=== PATIENT | female | born 1980 | race Caucasian/White ===

== ENCOUNTER 2016-03-24 18:57 | Emergency (ER) | payer OTHER ==
[~2016-03-24 18:57] MED LIST: IRON325 MG PO; PERCOCET1 TA1 PO; PROAIR HFA IN
--- NOTE | 2016-03-24 19:20 | DIAGNOSTIC IMAGING REPORT ---
PROCEDURE: XR ELBOW 3 OR 4 VIEWS - LEFT INDICATION: TRAUMA/INJURY TECHNIQUE: Four views. COMPARISON: None. FINDINGS: Osseous structures and joint spaces are normal. No evidence of an effusion. IMPRESSION: 1. Normal left elbow.
--- NOTE | 2016-03-24 19:38 | ED ORDER SUMMARY ---
..... Patient: OMAR MCMULLEN OrderSheet [facility] VisitID: [id number] [address] [place] [address] 35y, F Registration Date/Time: 03/24/2016 ORDER SHEET Weight: 122.0 kg (stated) Allergies: Iodine, Latex, Red Dye, Penicillins GENERAL ORDERS: Elbow 3 or 4V Left Urgent (19:07 03/24/2016 Reina P.A.-C) (19:15 Stephy Rivera) Calixto Wrap (19:37 03/24/2016 Reina P.A.-C) (19:41 Marisel WARD Tech1) MEDICATION ORDERS: IV FLUIDS: ORDER SHEET NOTES: [Electronically signed by Mamta Hernandez R.N. (19:51 03/24/2016)] [Electronically signed by Joan MartínezAChris-Hu (20:07 03/24/2016)] [Electronically locked/signed by Mamta Hernandez R.N. (19:51 03/24/2016)]
--- NOTE | 2016-03-24 19:38 | ED CLINICAL REPORT ---
Clinical Report - Physicians/Mid Levels [facility] [address] [place] [address] 03/24/2016 18:58 Patient: OMAR MCMULLEN Time Seen: 19:11 Mar 24 2016. Arrived- By private vehicle. Historian- patient. HISTORY OF PRESENT ILLNESS Chief Complaint: Injury to the left elbow. The injury happened just prior to arrival. The patient sustained a direct blow. Occurred at home. Patient is experiencing moderate pain. Patient denies injury to the head or neck. ( right-hand dominant individual, today for trial sample to the elbow. Reports was at home, playing around with her kids, she was with a soft/hard object to the left elbow. No medications or I try to arrival. Apparently to the area. Reports pain shooting to the wrist. Denies any other fall or any other injury to the head or neck.). REVIEW OF SYSTEMS No skin laceration. All systems otherwise negative, except as recorded above. PAST HISTORY The patient has had a prior injury to the same area. Problems: Cellulitis. Insect Bite(s). Adverse Drug Reaction. Dizziness. Fibromyalgia. Hepatitis. Ectopic . Dysfunctional Uterine Bleeding. Contusion. Sprain. Neuropathy. Vomiting. Immunizations. LNMP - Last Normal Menstrual Period. Pharyngitis. Bronchitis. Viral Disease. Back Pain. Asthma. Additional Surgeries: Cholecystectomy. Dilatation & Curettage. Tonsillectomy. Tubal Ligation. Medications: Mobic Oral. Albuterol Sulfate Inhalation, PRN. Singulair Oral, daily. Zoloft Oral. Allergies: Iodine. Latex. Penicillins. Red Dye. SOCIAL HISTORY Never smoker. Alcohol use. No drug use. PHYSICAL EXAM Vital Signs: 03/24/2016 19:01 BP: 103/78. HR: 110. RR: 18. O2 saturation: 99%. Temp: 97.7 F. Pain level now: 8/10. Head: Head atraumatic. ENT: Ears normal. Nose normal. Neck: Normal inspection. Neck supple. CVS: Normal heart rate and rhythm. Heart sounds normal. Respiratory: No respiratory distress. Breath sounds normal. No chest wall injury. Skin: Skin warm. Normal skin color. Extremities: Left elbow: mild tenderness and swelling. (distal tenderness). No ecchymosis or puncture wound. No joint effusion or limitation in ROM. Neuro, Vascular and Tendons: Vascular status intact. Tendon function intact. Neuro: Oriented X 3. LABS, X-RAYS, AND EKG Lt Elbow X-ray: (IMPRESSION: 1. Normal left elbow. Electronically Final signed by:Malick Waggoner MD 03/24/2016 7:17:05 PM). PROGRESS AND PROCEDURES PROCEDURES (yahir wrap left elbow, applied by [employer], ns intact). Course of Care: no signs of fx. Pt stable. fair rom. No other injury. Patient is stable. Patient/family counseled. Differential Diagnosis: I considered sprain, dislocation, effusion, hemarthrosis, ligament injury, tendon injury, meniscus tear, fracture, stress fracture, navicular fracture, bursitis and gout as a possible cause of joint pain in this patient. This is a partial list of diagnoses considered. Disposition: Discharged. CLINICAL IMPRESSION Contusion to the left elbow. INSTRUCTIONS Apply ice. OTC Medications: Motrin (available over the counter): take according to label instructions. Follow-up: Follow up with your doctor Tuesday if not well. (Electronically signed by Joan Martínez P.A.-C 03/24/2016 20:07)
--- NOTE | 2016-03-24 19:38 | ED NURSING NOTES ---
Clinical Report - Nurses [facility] [address] [place] [address] 03/24/2016 18:58 Patient: OMAR MCMULLEN TRIAGE Triage time 19:01. Acuity: LEVEL 3. Chief Complaint: INJURY TO THE LEFT FOREARM. Alert. No acute distress. CHARY COMA SCORE: Chary Coma Scale: 15- eyes open spontaneously (4); best verbal response- oriented x 4 (5); best motor response- obeys commands (6). --19:09 Sita Rader R.N. 19:01 03/24/16. BP: 103/78. HR: 110. RR: 18. O2 saturation: 99% on room air. Temp: 97.7 F (oral). Pain level now: 09/30. --19:09 Sita Rader R.N. Weight: 122 kg stated. Height/Length: 66 inches Per Patient. BMI: 43.4. --19:07 Sita Rader R.N. Medications Albuterol Sulfate Inhalation, PRN. Singulair Oral, daily. Zoloft Oral. --19:04 Sita Rader R.N. Mobic Oral. --19:04 Sita Rader R.N. Medication/allergy information source: the patient. --19:09 Sita Rader R.N. Allergies Iodine. Latex. Red Dye. --19:05 Sita Rader R.N. Penicillins. --19:05 Sita Rader R.N. History Arrived by private vehicle. Historian: patient. Accompanied by family and friend. Primary physician (Florencia). This occurred just prior to arrival and today. Occurred at home. Mechanism of injury: a blow (with heavy object). PAST MEDICAL HX: Last normal menstrual period- Feb 2016. SOCIAL HX: Smoker- current status unknown (no). Occasional alcohol use. No drug use. FALL RISK ASSESSMENT: Fall risk assessment completed. No fall risk identified. FUNCTIONAL ASSESSMENT: Functional assessment: no impairments noted. LEARNING NEEDS ASSESSMENT: The learning needs assessment revealed no barriers. --19:09 Sita Rader R.N. PROBLEMS: Cellulitis. Insect Bite(s). Adverse Drug Reaction. Dizziness. Fibromyalgia. Hepatitis. Ectopic . Dysfunctional Uterine Bleeding. Contusion. Sprain. Neuropathy. Vomiting. Immunizations. LNMP - Last Normal Menstrual Period. Pharyngitis. Bronchitis. Viral Disease. Back Pain. Asthma. --19:04 Sita Rader R.N. ADDITIONAL SURGERIES: Cholecystectomy. Dilatation & Curettage. Tonsillectomy. Tubal Ligation. --19:04 Sita Rader R.N. Assessment GENERAL / NEURO / PSYCH: The patient is awake and alert, is oriented and cooperative and appears uncomfortable. She has good eye contact. RESPIRATORY: Respirations not labored. SKIN: Skin is warm and dry. --19: Sita Rader R.N. Interventions ID and allergy band on patient. To treatment room. --19: Sita Rader R.N. NURSING PROGRESS NOTES 3 inch yahir bandage applied to left elbow by tech; distal pulses intact, sensation intact and motor function within normal limits. --19:40 Xiang Sanabria, ED Tech1. DISPOSITION / DISCHARGE Departure time: 1950 PM. Condition at departure: improved and stable. The goals identified in the patient's plan of care were met. No learning barriers present. Discharge instructions provided and reviewed with the patient. Reviewed medication(s) side effects, precautions, dosing and course information. Prescription(s) given to the patient. Treatments reviewed (ice and elevate). Activity restrictions (rest) reviewed. She has no activity restrictions. Patient verbalized understanding. Written instructions provided in Hungarian. No diet instructions. The patient was discharged by the physician geological survey field assistant. She was discharged home and accompanied by family. She left the Emergency Department ambulatory and via private vehicle. Patient driving. FALL RISK ASSESSMENT: Fall risk assessment completed. No fall risk identified. --19:50 Mamta Hernandez R.N. 19:45 03/24/16. BP: 108/58. HR: 78. RR: 16. O2 saturation: 100% on room air. Temp: 98.2 F (oral). Pain level now: 06/30. --19:50 Mamta Hernandez R.N. Locked/Released at 03/24/2016 19:51 by Mamta Hernandez R.N.
--- NOTE | 2016-03-24 19:38 | ED ORDER SUMMARY ---
..... Patient: OMAR MCMULLEN OrderSheet [facility] VisitID: [id number] [address] [place] [address] 35y, F Registration Date/Time: 03/24/2016 ORDER SHEET Weight: 122.0 kg (stated) Allergies: Iodine, Latex, Red Dye, Penicillins GENERAL ORDERS: Elbow 3 or 4V Left Urgent (19:07 03/24/2016 Reina P.A.-C) (19:15 Stephy Rivera) Calixto Wrap (19:37 03/24/2016 Reina P.A.-C) (19:41 Marisel WARD Tech1) MEDICATION ORDERS: IV FLUIDS: ORDER SHEET NOTES: [Electronically signed by Mamta Hernandez R.N. (19:51 03/24/2016)] [Electronically signed by Joan MartínezAChris-Hu (20:07 03/24/2016)] [Electronically locked/signed by Mamta Hernandez R.N. (19:51 03/24/2016)]
--- NOTE | 2016-03-24 19:38 | ED CLINICAL REPORT ---
Clinical Report - Physicians/Mid Levels [facility] [address] [place] [address] 03/24/2016 18:58 Patient: OMAR MCMULLEN Time Seen: 19:11 Mar 24 2016. Arrived- By private vehicle. Historian- patient. HISTORY OF PRESENT ILLNESS Chief Complaint: Injury to the left elbow. The injury happened just prior to arrival. The patient sustained a direct blow. Occurred at home. Patient is experiencing moderate pain. Patient denies injury to the head or neck. ( right-hand dominant individual, today for trial sample to the elbow. Reports was at home, playing around with her kids, she was with a soft/hard object to the left elbow. No medications or I try to arrival. Apparently to the area. Reports pain shooting to the wrist. Denies any other fall or any other injury to the head or neck.). REVIEW OF SYSTEMS No skin laceration. All systems otherwise negative, except as recorded above. PAST HISTORY The patient has had a prior injury to the same area. Problems: Cellulitis. Insect Bite(s). Adverse Drug Reaction. Dizziness. Fibromyalgia. Hepatitis. Ectopic . Dysfunctional Uterine Bleeding. Contusion. Sprain. Neuropathy. Vomiting. Immunizations. LNMP - Last Normal Menstrual Period. Pharyngitis. Bronchitis. Viral Disease. Back Pain. Asthma. Additional Surgeries: Cholecystectomy. Dilatation & Curettage. Tonsillectomy. Tubal Ligation. Medications: Mobic Oral. Albuterol Sulfate Inhalation, PRN. Singulair Oral, daily. Zoloft Oral. Allergies: Iodine. Latex. Penicillins. Red Dye. SOCIAL HISTORY Never smoker. Alcohol use. No drug use. PHYSICAL EXAM Vital Signs: 03/24/2016 19:01 BP: 103/78. HR: 110. RR: 18. O2 saturation: 99%. Temp: 97.7 F. Pain level now: 8/10. Head: Head atraumatic. ENT: Ears normal. Nose normal. Neck: Normal inspection. Neck supple. CVS: Normal heart rate and rhythm. Heart sounds normal. Respiratory: No respiratory distress. Breath sounds normal. No chest wall injury. Skin: Skin warm. Normal skin color. Extremities: Left elbow: mild tenderness and swelling. (distal tenderness). No ecchymosis or puncture wound. No joint effusion or limitation in ROM. Neuro, Vascular and Tendons: Vascular status intact. Tendon function intact. Neuro: Oriented X 3. LABS, X-RAYS, AND EKG Lt Elbow X-ray: (IMPRESSION: 1. Normal left elbow. Electronically Final signed by:Malick Waggoner MD 03/24/2016 7:17:05 PM). PROGRESS AND PROCEDURES PROCEDURES (yahir wrap left elbow, applied by [employer], ns intact). Course of Care: no signs of fx. Pt stable. fair rom. No other injury. Patient is stable. Patient/family counseled. Differential Diagnosis: I considered sprain, dislocation, effusion, hemarthrosis, ligament injury, tendon injury, meniscus tear, fracture, stress fracture, navicular fracture, bursitis and gout as a possible cause of joint pain in this patient. This is a partial list of diagnoses considered. Disposition: Discharged. CLINICAL IMPRESSION Contusion to the left elbow. INSTRUCTIONS Apply ice. OTC Medications: Motrin (available over the counter): take according to label instructions. Follow-up: Follow up with your doctor Tuesday if not well. (Electronically signed by Joan Martínez P.A.-C 03/24/2016 20:07)
--- NOTE | 2016-03-24 19:38 | ED NURSING NOTES ---
Clinical Report - Nurses [facility] [address] [place] [address] 03/24/2016 18:58 Patient: OMAR MCMULLEN TRIAGE Triage time 19:01. Acuity: LEVEL 3. Chief Complaint: INJURY TO THE LEFT FOREARM. Alert. No acute distress. CHARY COMA SCORE: Chary Coma Scale: 15- eyes open spontaneously (4); best verbal response- oriented x 4 (5); best motor response- obeys commands (6). --19:09 Sita Rader R.N. 19:01 03/24/16. BP: 103/78. HR: 110. RR: 18. O2 saturation: 99% on room air. Temp: 97.7 F (oral). Pain level now: 09/30. --19:09 Sita Rader R.N. Weight: 122 kg stated. Height/Length: 66 inches Per Patient. BMI: 43.4. --19:07 Sita Rader R.N. Medications Albuterol Sulfate Inhalation, PRN. Singulair Oral, daily. Zoloft Oral. --19:04 Sita Rader R.N. Mobic Oral. --19:04 Sita Rader R.N. Medication/allergy information source: the patient. --19:09 Sita Rader R.N. Allergies Iodine. Latex. Red Dye. --19:05 Sita Rader R.N. Penicillins. --19:05 Sita Rader R.N. History Arrived by private vehicle. Historian: patient. Accompanied by family and friend. Primary physician (Florencia). This occurred just prior to arrival and today. Occurred at home. Mechanism of injury: a blow (with heavy object). PAST MEDICAL HX: Last normal menstrual period- Feb 2016. SOCIAL HX: Smoker- current status unknown (no). Occasional alcohol use. No drug use. FALL RISK ASSESSMENT: Fall risk assessment completed. No fall risk identified. FUNCTIONAL ASSESSMENT: Functional assessment: no impairments noted. LEARNING NEEDS ASSESSMENT: The learning needs assessment revealed no barriers. --19:09 Sita Rader R.N. PROBLEMS: Cellulitis. Insect Bite(s). Adverse Drug Reaction. Dizziness. Fibromyalgia. Hepatitis. Ectopic . Dysfunctional Uterine Bleeding. Contusion. Sprain. Neuropathy. Vomiting. Immunizations. LNMP - Last Normal Menstrual Period. Pharyngitis. Bronchitis. Viral Disease. Back Pain. Asthma. --19:04 Sita Rader R.N. ADDITIONAL SURGERIES: Cholecystectomy. Dilatation & Curettage. Tonsillectomy. Tubal Ligation. --19:04 Sita Rader R.N. Assessment GENERAL / NEURO / PSYCH: The patient is awake and alert, is oriented and cooperative and appears uncomfortable. She has good eye contact. RESPIRATORY: Respirations not labored. SKIN: Skin is warm and dry. --19: Sita Rader R.N. Interventions ID and allergy band on patient. To treatment room. --19: Sita Rader R.N. NURSING PROGRESS NOTES 3 inch yahir bandage applied to left elbow by tech; distal pulses intact, sensation intact and motor function within normal limits. --19:40 Xiang Sanabria, ED Tech1. DISPOSITION / DISCHARGE Departure time: 1950 PM. Condition at departure: improved and stable. The goals identified in the patient's plan of care were met. No learning barriers present. Discharge instructions provided and reviewed with the patient. Reviewed medication(s) side effects, precautions, dosing and course information. Prescription(s) given to the patient. Treatments reviewed (ice and elevate). Activity restrictions (rest) reviewed. She has no activity restrictions. Patient verbalized understanding. Written instructions provided in French. No diet instructions. The patient was discharged by the physician recovery assistant. She was discharged home and accompanied by family. She left the Emergency Department ambulatory and via private vehicle. Patient driving. FALL RISK ASSESSMENT: Fall risk assessment completed. No fall risk identified. --19:50 Mamta Hernandez R.N. 19:45 03/24/16. BP: 108/58. HR: 78. RR: 16. O2 saturation: 100% on room air. Temp: 98.2 F (oral). Pain level now: 06/30. --19:50 Mamta Hernandez R.N. Locked/Released at 03/24/2016 19:51 by Mamta Hernandez R.N.
--- NOTE | 2016-03-24 20:07 | ED MED RECONCILIATION SUMMARY ---
Patient: OMAR MCMULLEN Medication Reconciliation Report [facility] VisitID: [id number] [address] [place] [address] 35y, F Registration Date/Time: 03/24/2016 Weight: 122.0 kg Height/Length: 66 in. BMI: 43.4 ALLERGIES: Iodine, Latex, Penicillins, Red Dye The patient's Home Medications are listed below: THE FOLLOWING MEDICATIONS NEED TO BE RECONCILED: Albuterol Sulfate Inhalation, PRN Mobic Oral Singulair Oral, daily Zoloft Oral The source(s) of the original Home Medication information: patient The following Medications were given to the patient in the Emergency Department: None. The following Medications were prescribed to the patient: Motrin (available over the counter): take according to label instructions. -- Joan Martínez P.A.-C
--- NOTE | 2016-03-24 20:07 | ED DISCHARGE INSTRUCTIONS ---
Patient: OMAR MCMULLEN General Instructions [facility] VisitID: [id number] [address] [place] [address] 35y, F Registration Date/Time: 03/24/2016 Contusion to the left elbow. INSTRUCTIONS Apply ice. OTC Medications: Motrin (available over the counter): take according to label instructions. Follow-up: Follow up with your doctor Tuesday if not well. ADDITIONAL INFORMATION Contusion,Soft Tissue You have a CONTUSION, which is a bruise with swelling and some bleeding under the skin. There are no broken bones. This injury takes a few days to a few weeks to heal. Home Care: 1) Keep the injured part elevated to reduce pain and swelling. This is especially important during the first 48 hours. 2) Make an ice pack (ice cubes in a plastic bag, wrapped in a towel) and apply for 20 minutes every 1-2 hours the first day. Continue this 3-4 times a day until the pain and swelling goes away. 3) You may use acetaminophen (Tylenol) or ibuprofen (Motrin, Advil) to control pain, unless another pain medicine was prescribed. [ NOTE : If you have chronic liver or kidney disease or ever had a stomach ulcer or GI bleeding, talk with your doctor before using these medicines.] Follow Up with your doctor or this facility if you are not improving within the next THREE days. [NOTE: If X-rays were taken, they will be reviewed by a radiologist. You will be notified of any new findings that may affect your care.] Get Prompt Medical Attention if any of the following occur: -- Pain or swelling increases -- Injured arm or leg becomes cold, blue, numb or tingly -- Redness, warmth or drainage from the skin Contusion:Upper Extremity You have a contusion of your upper extremity (arm, wrist, hand or fingers). This causes local pain, swelling and sometimes bruising. There are no broken bones. This injury takes a few days to a few weeks to heal. A sling may be provided for comfort and arm support. Home Care: 1) Keep your arm elevated to reduce pain and swelling. This is very important during the first 48 hours. 2) Apply an ice pack (ice cubes in a plastic bag, wrapped in a towel) over the injured area for 20 minutes every 1-2 hours the first day for pain relief. Continue this 3-4 times a day until the pain and swelling goes away. 3) You may use acetaminophen (Tylenol) or ibuprofen (Motrin, Advil) to control pain, unless another pain medicine was prescribed. [ NOTE : If you have chronic liver or kidney disease or ever had a stomach ulcer or GI bleeding, talk with your doctor before using these medicines.] 4) If a sling was provided, you may remove it to shower or bathe. Do not wear it for more than one week or it may cause joint stiffness. Follow Up with your doctor or this facility if you are not starting to improve within the next THREE days. [NOTE: If X-rays were taken, they will be reviewed by a radiologist. You will be notified of any new findings that may affect your care.] Get Prompt Medical Attention if any of the following occur: -- Pain or swelling increases -- Redness, warmth or drainage -- Hand or fingers becomes cold, blue, numb or tingly You have been given the following additional information: Contusion, Soft Tissue Contusion, Upper Extremity (Electronically signed by Joan Martínez P.A.-C 03/24/2016 20:07)
--- NOTE | 2016-03-24 20:07 | ED MED RECONCILIATION SUMMARY ---
Patient: OMAR MCMULLEN Medication Reconciliation Report [facility] VisitID: [id number] [address] [place] [address] 35y, F Registration Date/Time: 03/24/2016 Weight: 122.0 kg Height/Length: 66 in. BMI: 43.4 ALLERGIES: Iodine, Latex, Penicillins, Red Dye The patient's Home Medications are listed below: THE FOLLOWING MEDICATIONS NEED TO BE RECONCILED: Albuterol Sulfate Inhalation, PRN Mobic Oral Singulair Oral, daily Zoloft Oral The source(s) of the original Home Medication information: patient The following Medications were given to the patient in the Emergency Department: None. The following Medications were prescribed to the patient: Motrin (available over the counter): take according to label instructions. -- Joan Martínez P.A.-C
--- NOTE | 2016-03-24 20:07 | ED MAR SUMMARY ---
..... Medication Administration Record [facility] [address] [id number] Patient: OMAR MCMULLEN Visit ID: [id number] 35y, F Weight: 122.0 kg Height/Length: 66 in BMI: 43.4 ALLERGIES: Penicillins, Iodine, Latex, Red Dye
--- NOTE | 2016-03-24 20:07 | ED MAR SUMMARY ---
..... Medication Administration Record [facility] [address], [place] [id number] Patient: OMAR MCMULLEN Visit ID: [id number] 35y, F Weight: 122.0 kg Height/Length: 66 in BMI: 43.4 ALLERGIES: Penicillins, Iodine, Latex, Red Dye
== END 2016-03-24 19:50 | disposition home or self-care (01) ==
LOC: ED SRH 18:57
DX: S50.02XA Contusion of left elbow, initial encounter (principal); W22.8XXA Striking against or struck by other objects, initial encounter; Y93.83 Activity, rough housing and horseplay; Y92.009 Unspecified place in unspecified non-institutional (private) residence as the place of occurrence of the external cause; Y99.9 Unspecified external cause status; J45.909 Unspecified asthma, uncomplicated; Z88.0 Allergy status to penicillin; Z91.041 Radiographic dye allergy status; Z79.899 Other long term (current) drug therapy